=== PATIENT | female | born 1975 | race Caucasian/White ===

== ENCOUNTER 2021-12-05 20:16 | Emergency (ER) | payer SELFPAY ==
[~2021-12-05] VITALS: Ht 157.5 cm; Wt 63.5 kg
--- NOTE | 2021-12-05 20:19 | NUR ---
Pt bib [id number] straight back to room 2b, EDMD already assess pt condition in the hallway, pt in pos of comfort. on bedside monitor, VSS, PE WNL, NAD. No s/sxof acute distress. Pt appear to be intoxicated and sobering up. AAOx4.
[2021-12-05] MEDS ORDERED: IV NORMAL SALINE 1000 ML BAG IV ONE (20:30)
[2021-12-05] MEDS ORDERED: THIAMINE HCL 100 MG TABLET PO ONE (20:30)
--- NOTE | 2021-12-05 20:30 | NUR ---
Pt appears to be completely healthy with no med issues, she states that she drank half bottle of vodka and is intoxicated. Pt's PE WNL, NAD, NSR no ectopy at 78bpm, VSS 138/72, 99%RA. Pt states she wants to go home, and that she cant afford this hospital visit since she has no insurance. Her friend showed up to the waiting room and said that he is her lawer and that she has the right to refuse and sign out AMA. EDMD said to keep her and start IV with 1L NS. Pt was a hard stick and kept moving. attempted to insert angio 3 times however, she is a very hard stick. She started to refuse after 3rd attempt. Pt's friend is in waiting room harrassing studio receptionist and trying to get pt to acknowledge him. Pt all the while is saying that she doesnt want to be here and is not seeking treatment. EDMD refuses to let her sign out AMA and wants to treat her.
[2021-12-05] MEDS ORDERED: THIAMINE HCL 100 MG TABLET ONE (20:40)
[2021-12-05 21:36] LABS: HEMATOCRIT 46.2 % (31.2-41.9); MEAN CORPUSCULAR HEMOGLOBIN 32.6 uug (24.7-32.8); MEAN CORPUSCULAR VOLUME 96.3 fL (75.5-95.3); PLATELET COUNT (AUTO) 265 K/uL (179-408)
[2021-12-05 21:50] LABS: BILIRUBIN,TOTAL 0.2 mg/dL (0.2-1.0); CREATININE 0.8 mg/dL (0.6-1.3); MAGNESIUM 2.4 mg/dL (1.8-2.4); POTASSIUM 3.7 mmol/L (3.5-5.1); TOTAL PROTEIN, SERUM 8.5 g/dL (6.4-8.2)
--- NOTE | 2021-12-05 22:00 | NUR ---
After much ado by both pt and pt's friend/sharepoint admin, the EDMD finally let her leave after along counceling session where he gave her some advice on how to get her life back on track; she was also given some info about additional resources available to her through the [facility]. So was signed out by EDMD personally. Pt was aaox4, vss, SaO2 at 99%RA, 111/63, 83bpm, NSR without ectopy, RRR, normal s1s2 no m/g/r, Lungs CTAB, PERRLA, no oral lesions, no missing teeth, no trach deviation, no jvd. 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 PE WNL. pt denies any pain, sob, n/v, dizziness or discomfort. No s/sx of distress present. Pt states that she will go home and sleep it off, friend confirmed and said that he would see to her going to bed and sleeping it off. Pt ambulated out of dept with steady gait accompanied by friend.
[2021-12-06 04:35] VITALS: BP 135/72
== END 2021-12-05 23:00 | disposition home or self-care (01) ==
LOC: ER 20:17
DX: F10.129 Alcohol abuse with intoxication, unspecified (principal); Z80.3 Family history of malignant neoplasm of breast; S80.212A Abrasion, left knee, initial encounter; X58.XXXA Exposure to other specified factors, initial encounter; Y92.89 Other specified places as the place of occurrence of the external cause
CPT/HCPCS: 36415; 83735; 85025; A4663; J7040